=== PATIENT | male | born 1965 | race African-American/Black ===

== ENCOUNTER 2018-07-19 18:19 | Emergency (ER) | payer MEDICARE ==
--- NOTE | 2018-07-19 18:21 | ED ---
HPI Chest Pain - HPI Summary HPI Summary: The pt is a 52 year old male brought in by ambulance to [facility] c/o sudden onset CP since today. The pain rated 9/10 in severity radiates to the jaw and L arm. He notes LUE numbness, SOB, diaphoresis, TOBIN, abd pain and chronic rectal bleeding (secondary to colon CA). He took 5 NTG SHOE CUTTER to no relief. Most of his cardiac work up was done at [facility] at [place]. He reports a MHx of RI x8 and [id number]. He is scheduled for a bypass surgery and colon resection surgery. Allergies: Penicillin, Toradol - History of Current Complaint Hx Obtained From: Patient Onset/Duration: Started Hours Ago, Still Present Timing: Constant Initial Severity: Severe Current Severity: Severe Pain Intensity: 9 Pain Scale Used: 0-10 Numeric Chest Pain Location: Diffuse Chest Pain Radiates: Yes Chest Pain Radiates To:: Arm - L, Jaw - L Alleviating Factor(s): Nothing Associated Signs and Symptoms: Positive: Chest Pain, Headaches, Numbness, Shortness of Breath, Diaphoresis, Abdominal Pain - Allergy/Home Medications Allergies/Adverse Reactions: Allergies Allergy/AdvReac Type Severity Reaction Status Date / Time ketorolac [From Toradol] Allergy Hives Verified 07/20/18 09:19 Penicillins Allergy Swelling Verified 07/20/18 09:19 Of Face,Lips,& Throat tramadol Allergy Hives Verified 07/20/18 09:19 Home Medications: Home Medications Albuterol HFA INHALER* [Ventolin HFA Inhaler*] 1 puff INH Q6H PRN 07/19/18 [ History Confirmed 07/19/18] Clopidogrel TAB* [Plavix TAB*] 75 mg PO DAILY 07/19/18 [History Confirmed ] Diazepam TAB(*) [Valium TAB(*)] 10 mg PO Q8H PRN 07/19/18 [History Confirmed ] Lisinopril TAB* [Prinivil TAB*] 10 mg PO DAILY 07/19/18 [History Confirmed 07/19] Metoprolol Tartrate TAB* [Lopressor TAB*] 50 mg PO BID 07/19/18 [History Confirmed 07/19/18] Morphine Sulfate 15 mg PO Q6HR PRN 07/19/18 [History Confirmed 07/19/18] OLANzapine TAB* [Zyprexa 10 MG TAB*] 10 mg PO DAILY 07/19/18 [History Confirmed 07/19/18] Sertraline* [Zoloft*] 100 mg PO DAILY 07/19/18 [History Confirmed 07/19/18] metFORMIN* [Glucophage 500 MG TAB *] 500 mg PO BID 07/19/18 [History Confirmed 07/19/18] PMH/Surg Hx/FS Hx/Imm Hx Previously Healthy: No Endocrine/Hematology History: Reports: Hx Diabetes Cardiovascular History: Reports: Hx Coronary Artery Disease - Stenting , Hx Hypertension, Hx Myocardial Infarction Respiratory History: Reports: Hx Asthma Psychiatric History: Reports: Hx Schizophrenia, Hx Bipolar Disorder - Cancer History Cancer Type, Location and Year: Colon CA - Family History Known Family History: Positive: Cardiac Disease, Hypertension - Social History Occupation: Employed Full-time Lives: With Family Hx Tobacco Use: No Review of Systems Positive: Chest Pain Negative: Shortness Of Breath, Cough Negative: Abdominal Pain, Vomiting Genitourinary: Negative Musculoskeletal: Negative Skin: Negative All Other Systems Reviewed And Are Negative: Yes Physical Exam - Summary Physical Exam Summary: Appearance: Well-appearing, Well-nourished, lying in bed comfortably Skin: Warm, dry, no obvious rash Eyes: sclera anicteric, no conjunctival pallor ENT: mucous membranes moist, pharynx appears normal Neck: Supple, nontender Respiratory: Clear to auscultation, no signs of respiratory distress Cardiovascular: Normal S1, S2. No murmurs. Normal distal pulses in tibial and radial bilaterally. Abdomen: Soft, nontender, normal active bowel sounds present Musculoskeletal: Normal, Strength/ROM Intact Neurological: A&Ox3, awake and alert, mentation is normal, speech is fluent and appropriate Psychiatric: affect is normal, does not appear anxious or depressed Triage Information Reviewed: Yes Vital Signs On Initial Exam: Initial Vital Signs Resp 18 07/19/18 18:22 Vital Signs Reviewed: Yes Diagnostics - Laboratory Result Diagrams: 07/19/18 18:28 07/19/18 18:28 Lab Statement: Any lab studies that have been ordered have been reviewed, and results considered in the medical decision making process. - Radiology CXR Radiology Interpretation Completed By: ED Physician - Negative: This is a normal CXR - EKG 18:27 Cardiac Rate: Tachycardia - 110 bpm Summary of EKG Findings: Anterior infarct ,old Chest Pain Course/Dx - Course Course Of Treatment: A 52 year-old M presents to the ED with a CC of sudden onset CP since today. He notes LUE numbness, SOB, diaphoresis, TOBIN, abd pain and chronic rectal bleeding (secondary to colon CA). A physical exam and CXR are unremarkable. An EKG reveals tachycardia and an old anterior infarct. In the ED course, pt was given Morphine 10 mg IV which improved the symptoms. Allergies noted. We were able to secure records from [facility] in [place], where the patient said he had been treated before and was told he needed heart surgery and surgery for a colon tumor. 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 There is also a history of mental illness with documentation of schizophrenia and bipolar disease, as well as polysubstance abuse. He had a catheterization during that hospitalization which showed nonobstructive coronary disease. He also had a echocardiogram which showed normal left ventricular function. All in all, I find his history highly questionable. In any event, he has an unchanged EKG compared to February, a normal troponin, and his symptoms are better. I believe he is stable for discharge. - Diagnoses Provider Diagnoses: Non-cardiac chest pain, Drug-seeking behavior, Schizophrenia Discharge - Sign-Out/Discharge Documenting (check all that apply): Patient Departure - Discharge Plan Condition: Good Disposition: HOME Patient Education Materials: Noncardiac Chest Pain (ED) Referrals: [facility] [Outside] - Billing Disposition and Condition Condition: GOOD Disposition: Home - Attestation Statements Document Initiated by Dennisibe: Yes Documenting Scribe: Kathie Greenwood Provider For Whom Vince is Documenting (Include Credential): Dr. Bradley Crockett MD Scribe Attestation: IKathie scribed for Dr. Bradley Crockett MD on 07/21/18 at 2305. Scribe Documentation Reviewed: Yes Provider Attestation: The documentation as recorded by the Kathie gómez accurately reflects the service I personally performed and the decisions made by me, Dr. Bradley Crockett MD
[2018-07-19] MEDS ORDERED: Morphine VIAL* 4 MG/ML VIAL (1 ml vial) IV ONE (18:24)
[2018-07-19 18:46] LABS: Hematocrit 31 % (42-52); Hemoglobin 9.8 g/dl (14.0-18.0); Mean Corpuscular HGB Conc 32 g/dl (31-36); Mean Corpuscular Hemoglobin 24 pg (27-31); Mean Corpuscular Volume 74 fL (80-94); Mean Platelet Volume 8.8 fL (7.4-10.4); Platelet Count 238 10^3/ul (150-450); Red Blood Count 4.19 10^6/ul (4.00-5.40); Red Cell Distribution Width 20 % (10.5-15); White Blood Count 10.1 10^3/ul (3.5-10.8)
[2018-07-19 19:06] LABS: EGFR Non-African American 92.9 (>60)
[2018-07-19 19:15] LABS: ABS Basophils 0.1 10^3/ul (0-0.2); ABS Eosinophils 0.2 10^3/ul (0-0.6); ABS Lymphocytes 1.4 10^3/ul (1.0-4.8); ABS Monocytes 0.9 10^3/ul (0-0.8); ABS Neutrophils 7.4 10^3/ul (1.5-7.7); ABS Nucleated RBC 0 10^3/ul; Eosinophil % 2.2 % (0-6); Lymphocyte % 14.2 % (25-47); Nucleated Red Blood Cells % 0.1
[2018-07-19 21:17] VITALS: BP 148/85
== END 2018-07-19 21:18 | disposition home or self-care (01) ==
LOC: ED 18:19
DX: R07.89 Other chest pain (principal); F20.9 Schizophrenia, unspecified; R06.02 Shortness of breath; Z76.5 Malingerer [conscious simulation]; R00.0 Tachycardia, unspecified; E11.9 Type 2 diabetes mellitus without complications; Z79.84 Long term (current) use of oral hypoglycemic drugs; I25.10 Atherosclerotic heart disease of native coronary artery without angina pectoris; I10 Essential (primary) hypertension; Z95.5 Presence of coronary angioplasty implant and graft; J45.909 Unspecified asthma, uncomplicated; Z82.49 Family history of ischemic heart disease and other diseases of the circulatory system; Z88.5 Allergy status to narcotic agent; Z88.0 Allergy status to penicillin
CPT/HCPCS: 36415; 71045; 80053; 83605; 84484; 85025; 93005; 96374; 99283; J2270

== ENCOUNTER 2018-07-20 08:32 | Observation (INO) | payer MEDICARE ==
[2018-07-20] MEDS ORDERED: MAGNESIUM SULFATE ONE (08:48)
[2018-07-20] MEDS ORDERED: methylPREDNISolone 125 MG* 2 ML VIAL ONE (08:48)
[2018-07-20] MEDS ORDERED: NS 0.9% 1000 ML* 1,000 ML IV ONE (08:49)
[2018-07-20] MEDS ORDERED: methylPREDNISolone 125 MG* 2 ML VIAL IV ONE (08:49)
[2018-07-20] MEDS ORDERED: Albuterol/Ipratropium NEB.SOL* Albuterol 2.5 MG/Ipratropium 0.5 MG 3 ML ONE (08:51)
[2018-07-20] MEDS ORDERED: Morphine VIAL* 4 MG/ML VIAL (1 ml vial) IV ONE (08:52)
[2018-07-20] MEDS ORDERED: Magnesium Sulfate 2 GM IV* 2 GM/50 ML BAG IVPB ONE (08:52)
[2018-07-20] MEDS ORDERED: Nitroglycerin 2% OINT* 1 GM PAK TOPICAL ONE (08:53)
--- NOTE | 2018-07-20 08:54 | ED ---
Shortness of Breath - HPI Summary HPI Summary: This patient is a 52 year old M presenting to [facility] with a chief complaint of SOB and trouble breathing that was worse this morning. The patient rates the pain 10/10 in severity. Patient reports CP. Patient denies n/v. Pt has a hx of COPD, asthma, and 8 MIs. Pt also has recent dx of colon cancer and states he has rectal bleeding currently. He has not had any chemo or resection. He has taken 5 NTG for his CP without relief. He is also taking Plavix and ASA. He has been intubated for asthma in the past and consented to intubation if needed. - History of Current Complaint Chief Complaint: EDChestPainROMI Time Seen by Provider: 07/20/18 08:41 Hx Obtained From: Patient Onset/Duration: Lasting Hours, Still Present Timing: Constant Current Severity: Severe Dyspnea At: Rest Alleviating Factors: Nothing Associated Signs & Symptoms: Negative - n/v - Allergy/Home Medications Allergies/Adverse Reactions: Allergies Allergy/AdvReac Type Severity Reaction Status Date / Time ketorolac [From Toradol] Allergy Hives Verified 07/20/18 09:19 Penicillins Allergy Swelling Verified 07/20/18 09:19 Of Face,Lips,& Throat tramadol Allergy Hives Verified 07/20/18 09:19 Home Medications: Home Medications Aspirin TAB* [Aspirin 325 MG TAB*] 325 mg PO DAILY 07/20/18 [History Confirmed 07/20/18] Atorvastatin* [Lipitor*] 80 mg PO DAILY 07/20/18 [History Confirmed 07/20/18] PMH/Surg Hx/FS Hx/Imm Hx Endocrine/Hematology History: Reports: Hx Diabetes Cardiovascular History: Reports: Hx Coronary Artery Disease - Stenting , Hx Hypertension, Hx Myocardial Infarction Respiratory History: Reports: Hx Asthma Psychiatric History: Reports: Hx Schizophrenia, Hx Bipolar Disorder - Cancer History Cancer Type, Location and Year: Colon CA Infectious Disease History: No Infectious Disease History: Denies: Traveled Outside the [place] in Last 30 Days - Family History Known Family History: Positive: Cardiac Disease, Hypertension - Social History Alcohol Use: None Substance Use Type: Reports: None Hx Tobacco Use: No Smoking Status (MU): Never Smoked Tobacco Review of Systems Positive: Chest Pain Positive: Shortness Of Breath Negative: Vomiting, Nausea All Other Systems Reviewed And Are Negative: Yes Physical Exam - Summary Physical Exam Summary: VITAL SIGNS: Reviewed. GENERAL: Patient is a well-developed and obese male who is lying comfortable in the stretcher. Unable to speak in full sentence he is in respiratory distress HEAD AND FACE: No signs of trauma. No ecchymosis, hematomas or skull depressions. No sinus tenderness. EYES: PERRLA, EOMI x 2, No injected conjunctiva, no nystagmus. EARS: Hearing grossly intact. Ear canals and tympanic membranes are within normal limits. MOUTH: Oropharynx within normal limits. NECK: Supple, trachea is midline, no adenopathy, no JVD, no carotid bruit, no c- spine tenderness, neck with full ROM. CHEST: Symmetric, no tenderness at palpation LUNGS: decreased breath sounds bilaterally. CVS: Regular rate and rhythm, S1 and S2 present, no murmurs or gallops appreciated. ABDOMEN: Soft, non-tender. No signs of distention. No rebound no guarding, and no masses palpated. Bowel sounds are normal. EXTREMITIES: FROM in all major joints, no edema, no cyanosis or clubbing. NEURO: Alert and oriented x 3. No acute neurological deficits. Speech is normal and follows commands. SKIN: Dry and warm Rectal: normal sphincter tone no blood or melena Triage Information Reviewed: Yes Vital Signs On Initial Exam: Initial Vitals Temp Pulse Resp BP Pulse Ox 98 F 103 20 148/114 98 07/20/18 08:33 07/20/18 08:33 07/20/18 08:33 07/20/18 08:33 07/20/18 08:33 Vital Signs Reviewed: Yes Diagnostics - Vital Signs Vital Signs Temp Pulse Resp BP Pulse Ox 07/20/18 08:33 98 F 103 20 148/114 98 - Laboratory Result Diagrams: 07/20/18 13:57 07/20/18 11:51 Lab Statement: Any lab studies that have been ordered have been reviewed, and results considered in the medical decision making process. - EKG 0854 Cardiac Rate: NL EKG Rhythm: Sinus Rhythm - at 99 BPM EKG Comparison: No Significant Change - from 07-19-18 Summary of EKG Findings: no ST elevations Course/Dx - Course Assessment/Plan: This patient is a 52 year old M presenting to [facility] with a chief complaint of SOB and trouble breathing that was worse this morning. The patient rates the pain 10/10 in severity. Patient reports CP. Patient denies n/ v. Pt has a hx of COPD, asthma, and 8 MIs. Pt also has recent dx of colon cancer and states he has rectal bleeding currently. He has not had any chemo or resection. He has taken 5 NTG for his CP without relief. He is also taking Plavix and ASA. He has been intubated for asthma in the past and consented to intubation if needed. Blood work without any significant abnormality except for elevated 9.7 hematocrit 31, glucose 177, CPK is 472 and CRP of 9.1. ABG shows a pH of 7.7 PCO2 46 PO2 182 and O2 sat 99% with 2 L of oxygen. In the ED course the patient was placed on a cardiac specialist, I placed and EJ access and the patient was given fluids, Solu-Medrol, magnesium and morphine for the shortness of breath and chest pain. The patient already took an aspirin however he was placed in a nitroglycerin patch. The patient is feeling a little better however the patient continues to have chest pain. EKG shows a normal sinus rhythm without any ST elevation. Chest x-ray impression: No active cardiopulmonary disease. Patient was given Ativan for anxiety. At this time I discussed my physical exam findings and test results with Dr. River from the hospitalist services who accepted the patient for admission. The patient is more stable feeling better, and he is able to speak in full sentences. - Diagnoses Differential Diagnosis/HQI/PQRI: Positive: Asthma, Bronchitis, CHF, Chest Wall Pain, COPD Exacerbation, MD, Pneumonia, Unstable Angina Provider Diagnoses: Chest pain, Asthma exacerbation - Physician Notifications Discussed Care of Patient With: Princess River Time Discussed With Above Provider: 10:00 Instructed by Provider To: Admit As Inpatient Discharge - Sign-Out/Discharge Documenting (check all that apply): Patient Departure - admitted - Discharge Plan Condition: Fair Disposition: ADMITTED TO [facility] - Billing Disposition and Condition Condition: FAIR Disposition: Admitted to [facility] - Attestation Statements Document Initiated by Scribe: Yes Documenting Scribe: Renzo Sepulveda Provider For Whom Scribe is Documenting (Include Credential): Shawn Stovall MD Scribe Attestation: Renzo Martinez, scribed for Shawn Stovall MD on 07/20/18 at 1822. Scribe Documentation Reviewed: Yes Provider Attestation: The documentation as recorded by the Renzo gómez accurately reflects the service I personally performed and the decisions made by me, Shawn Stovall MD
[2018-07-20] MEDS: Albuterol/Ipratropium NEB.SOL* Albuterol 2.5 MG/Ipratropium 0.5 MG 3 ML INH SCH ×6 (09:00→22:55)
[2018-07-20 09:35] LABS: EGFR Non-African American 96.7 (>60)
[2018-07-20 09:39] LABS: ABS Basophils 0 10^3/ul (0-0.2); ABS Eosinophils 0.3 10^3/ul (0-0.6); ABS Lymphocytes 1.4 10^3/ul (1.0-4.8); ABS Monocytes 0.8 10^3/ul (0-0.8); ABS Neutrophils 4.2 10^3/ul (1.5-7.7); ABS Nucleated RBC 0 10^3/ul; Eosinophil % 4.4 % (0-6); Hematocrit 31 % (42-52); Hemoglobin 9.7 g/dl (14.0-18.0); Lymphocyte % 20.9 % (25-47); Mean Corpuscular HGB Conc 32 g/dl (31-36); Mean Corpuscular Hemoglobin 24 pg (27-31); Mean Corpuscular Volume 75 fL (80-94); Mean Platelet Volume 8.8 fL (7.4-10.4); Nucleated Red Blood Cells % 0.1; Platelet Count 226 10^3/ul (150-450); Red Blood Count 4.15 10^6/ul (4.00-5.40); Red Cell Distribution Width 20 % (10.5-15); White Blood Count 6.7 10^3/ul (3.5-10.8)
[2018-07-20] MEDS ORDERED: LORazepam INJ* 2 MG/ML 1 ML VIAL IV PUSH ONE (09:39)
[2018-07-20] MEDS ORDERED: Morphine VIAL* 4 MG/ML VIAL (1 ml vial) IV PRN (11:36)
[2018-07-20] MEDS ORDERED: Dextrose 50% Syringe 50 ML* 25 GM/50 ML SYRINGE IV PUSH PRN (11:36)
[2018-07-20] MEDS ORDERED: Acetaminophen TAB* 325 MG PO PRN (11:36)
[2018-07-20] MEDS ORDERED: Ondansetron INJ* 2 MG/ML VIAL IV PRN (11:36)
[2018-07-20] MEDS ORDERED: Albuterol HFA INHALER* 8 gm MDI INH PRN (11:44)
[2018-07-20] MEDS ORDERED: Morphine ORAL.SOLN 10 mg* 2 MG/ML UDC 5 ml PO PRN (11:44)
[2018-07-20] MEDS ORDERED: Diazepam TAB(*) 5 MG PO PRN (11:44)
[2018-07-20] MEDS ORDERED: Clopidogrel TAB* 75 MG PO SCH (11:45)
[2018-07-20] MEDS ORDERED: Iodixanol* (CONTRAST) 320 MG/ML 100 ML SDV IV ONE (11:52)
[2018-07-20] MEDS ORDERED: Aspirin TAB* 325 MG PO SCH (12:00)
[2018-07-20] MEDS ORDERED: Albuterol/Ipratropium NEB.SOL* Albuterol 2.5 MG/Ipratropium 0.5 MG 3 ML INH SCH ×2 (12:00→15:00)
[2018-07-20] MEDS: Albuterol 2.5 MG/3 ML NEB.SOL* (0.083%) INH PRN (12:49)
[2018-07-20] MEDS: Metoprolol Tartrate TAB* 50 mg PO SCH ×2 (13:49→20:46)
[2018-07-20] MEDS: Lisinopril TAB* 10 MG PO SCH (13:49)
[2018-07-20] MEDS: Heparin VIAL(*) 5000 UNITS/ML VIAL (FIVE THOUSAND) SUBCUT SCH ×2 (13:49→20:47)
[2018-07-20] MEDS: predniSONE TAB* 20 MG PO SCH (13:49)
[2018-07-20 14:17] LABS: Hematocrit 29 % (42-52); Hemoglobin 9.1 g/dl (14.0-18.0)
[2018-07-20 14:19] LABS: INR 1.06 (0.77-1.02)
--- NOTE | 2018-07-20 16:15 | HP ---
HISTORY AND PHYSICAL: DATE OF ADMISSION: 07/20/18 PRIMARY CARE PROVIDER: None. ATTENDING PHYSICIAN WHILE IN THE HOSPITAL: Dr. Princess River * (report dictated by Buck Burroughs NP). CHIEF COMPLAINT: 1. Shortness of breath. 2. Chest pain. HISTORY OF PRESENT ILLNESS: Mr. Quiñones is a 52-year-old male patient, who has significant cardiac disease, who was in [place] down to [place], the [employer] bus was coming through [place] and yesterday, he started complaining of chest pain on the bus. He alerted the combustion analyst. They merely pulled over and they called 911 and the paramedics picked him and brought him to the ED. Evaluated in our ED yesterday. According to him, he underwent heart enzymes and he spent the night in the waiting room. He described the pain yesterday as a pressure, heaviness, it was unrelenting, it started in the afternoon, just was not getting any better. He took 5 nitro, it did not help, so he decided to come into the ER. It was nonexertional. He did admit to shortness of breath and he felt like he was getting sweaty. He says that he has not taken his medications since Tuesday. He also states that before getting on the [employer] bus, he ate 5 candy apples and his sugars were in the 600 range. He was discharged to the waiting room. When he woke up this morning to try to find his weight down to [place], he went to the administrative receptionist out there, he was complaining of shortness of breath. He was audibly wheezing. He was complaining of chest pain again and they brought him back into the ER, where he was evaluated. He was given nebulizers, steroids, and he improved. He again was complaining of chest pain that did respond to morphine and he was placed on nitro-paste. He says that last time he had a heart catheterization was about a year ago. He says that his last tape coater was Joel Rea from [place], [place]. He denies any recent cough, cold symptoms. No fevers. No calf or leg pain. He denies any nausea or vomiting. He did admit to 1 episode of rectal bleeding yesterday, but none since and his Hemoccult was negative. He does admit to intermittent lower abdominal pain and does admit that he has colon cancer that he was going to have taken care of when he arrived in [place]. Because of his risk factors for CAD and the fact he had chest pain, he was very short of breath, we were asked to evaluate for admission. PAST MEDICAL HISTORY: Significant for: 1. Colon cancer. 2. History of IN he says x8. 3. CAD. 4. History of cardiomyopathy. 5. CHF. 6. Diabetes. 7. Hypertension. 8. Hyperlipidemia. 9. COPD. 10. He has bipolar disorder. 11. Schizophrenia. PAST SURGICAL HISTORY: He has had heart catheterizations and the most recent stent was a year ago and he has had an ICD defibrillator placed. MEDICATIONS: Home meds according to the list he provided include: 1. Lipitor 80 mg daily. 2. Aspirin 325 mg daily. 3. Metformin 500 mg p.o. b.i.d. 4. Zoloft 100 mg p.o. daily. 5. Zyprexa 10 mg daily. 6. Morphine sulfate 15 mg every 6 hours as needed. 7. Metoprolol 50 mg p.o. b.i.d. 8. Lisinopril 10 mg daily. 9. Valium 10 mg p.o. every 8 hours as needed. 10. Plavix 75 mg daily. 11. Ventolin 1 puff inhaled every 6 hours as needed. ALLERGIES TO MEDICATIONS: Include TORADOL, PENICILLIN, and TRAMADOL. FAMILY HISTORY: His mother had a history of IN. He says his father is healthy. Mother did from the IN. SOCIAL HISTORY: He does not smoke. He does not drink. He has 1 child. His surrogate decision maker is his sister, Tessy. REVIEW OF SYSTEMS: There is a documented fever. He denied any significant weight change. There is no double vision. He denied having any ear discharge. He denies having any rhinorrhea. No sore throat. No thyroid enlargement. Again, he did admit to having chest pain and shortness of breath from my HPI. He denies any orthopnea. No nocturnal dyspnea. There was some intermittent lower abdominal discomfort, but no nausea, no vomiting. No dysuria, no frequency. No seizures, no loss of consciousness. No pruritus and no skin ulcerations. Review of 14 systems completed, all others negative. PHYSICAL EXAMINATION GENERAL: At this time, Mr. Quiñones is a 52-year-old male patient. He is sitting in the ED stretcher. He does not appear to be in any acute distress currently, appears to be well nourished and well developed VITAL SIGNS: Blood pressure 128/84 with a pulse of 103, respirations were 20, O2 sat 96%, and temperature 98. HEENT: Head: Atraumatic and normocephalic. Eyes: EOMs are intact. Sclerae anicteric and not pale. Throat: Oral mucosa appears to be moist. No oropharyngeal erythema. NECK: Supple. LUNGS: He did have expiratory wheezing noted on the right middle and right lower lobe. He had equal diaphragmatic expansion. HEART: Sounds S1, S2. He had a regular rate and rhythm. No murmurs, rubs, or gallops. ABDOMEN: Soft, flat. There was tenderness in the left lower quadrant. Bowel sounds were present. EXTREMITIES: Pulses were 2+ throughout. He had no peripheral edema. He is moving all 4 extremities with 5/5 strength. NEUROLOGIC: He is awake. He is alert. He is oriented x3. His tongue is midline. His quick print operator were equal. He had no gross focal deficits. SKIN: Grossly intact. LABORATORY DATA/DIAGNOSTIC STUDIES: Today, WBC of 6.7, RBC of 4.15, hemoglobin of 9.7, hemoglobin yesterday was 9.8, hematocrit 31, platelet count of 226. PTT of 27.6. D-dimer less than 200. Blood gases revealed a pCO2 of 46 and a pO2 of 102. His sodium was 137, potassium is 4.2, chloride 105, bicarb 28, BUN 14, creatinine 0.84, glucose 117. Lactic 1.3. Calcium 9.3, total bili 0.3, AST 37, ALT 49, alk phos 101, CK 472, CK-MB 5.2, myoglobin 29, troponin 0.01. CRP at 9.10, BNP 59, albumin of 4.2. He had a chest x-ray obtained today. Impression: He had a no active cardiopulmonary disease. Again, when I looked at the film myself, I do not see any acute infiltrates or pulmonary edema. He had 3 EKGs, most recent one at 11: 40 today. Does reveal a sinus tachycardia at the rate of 101. No ST elevation. He does appear to have J-point elevation in V1 and V2. When you looked to his EKG that he had at 8:40 this morning that elevation is similar. No acute changes were noted. Old medical records reviewed. ASSESSMENT AND PLAN: Mr. Quiñones is a 52-year-old male patient with multiple medical problems coming into our hospital today with complaints of chest pain and shortness of breath. He will be admitted under observation status: 1. Chest pain. Again, at this point, I do not have much records on the patient. He does have significant risks factors for acute coronary syndrome. He is responding now and saying that the pain is gone. At this point, I am going to go ahead and get 2 more sets of enzymes. We will make him n.p.o. after midnight for possible stress test. I am going to get an echo and I will interrogate his pacemaker as well. He is on Plavix, aspirin, statin, beta- eileen. He has not taken those in 2 days, so I am going to restart those now, particularly the beta- blockers, Plavix, and aspirin, and will continue to follow him. Should his troponins elevate, we will certainly put him on heparin drip and get in touch with Cardiology. I am gong to get his records from his tape coater, Dr. Rea. I have called the office and asked them to fax through our ER here and I have asked the ER staff to be able to look out for those. 2. Colon cancer. Again, at this point, I am going to try to get records about this. I am going to get a CT of the abdomen and pelvis because of the pain he has been having and we will continue to monitor. I suspect that is where his anemia is coming from. We will repeat his H and H later today. 3. Coronary artery disease. Again, aspirin, statin, Plavix, beta-eileen have been ordered. 4. Cardiomyopathy. I am assuming he has cardiomyopathy and he says he also has congestive heart failure. It is probably ischemic in nature. We are going to update his echo. He is on a beta-eileen. He is on JENNIFER inhibitor. We will continue with those. We may need to consider diuretic, but he does not appear to be in congestive landrum failure or fluid overload at this point. So, we will monitor. 5. Diabetes. We will go ahead and put him on a Lispro sliding scale. 6. Hypertension. Continue meds as prescribed. 7. Hyperlipidemia. Continue statin therapy. 8. Chronic obstructive pulmonary disease. He does have a mild exacerbation. I am going to put him on steroids, Dulera, and q.4-hour DuoNebs. 9. History of bipolar schizophrenic disorder. We will continue his p.o. meds as prescribed. Appears to be stable. 10. Social issues. Again, he is on his way down to [place]. I will contact social work to see if they can help arrange this for discharge and I have contacted them early in his course once he is medically stable. 11. Rectal bleeding. Again, at this point, he has had no episodes since he has been here. His Hemoccult is negative. We will monitor and again, we will follow with H and H. 12. DVT prophylaxis. I have placed him on heparin subcu. 13. Code status is full code. 14. Fluid, electrolytes, and nutrition. A consistent carb diet. TIME SPENT: On admission was 60 minutes, greater than half the time was spent face- to-face with the patient obtaining my history and physical; other half time was spent going over the plan of care with the patient and implementing the plan of care. I did discuss the plan of care with my attending, Dr. River, she is in agreement. BUCK BURROUGHS NP [id number]/CPS #: [id number] MTDD
--- NOTE | 2018-07-20 16:17 | ECHO ---
Patient: KAILEY DEL VALLE [facility] Rec#: [id number] : 1965 Date: 07/20/2018 Age: 52y Height: 168 cm / 66.1 in Weight: 111.6 kg / 246.0 lbs Sex: M BSA: 2.19 Room#: [facility] Admit Date#: 07/20/2018 Type: Inpatient Referring: Buck Burroughs NP Reading: Roel Newman DO Street Openings Inspector: Yessy Pickett RDCS Transthoracic Echocardiogram Indication: Chest pain BP: 128/84 HR: 109 Rhythm: Tachycardia Findings History: HTN, HLD, CAD, MD, HM, COPD, colon cancer. Technical Comments: The study quality is good. Completed at 1500. Left Ventricle: The left ventricular chamber size is normal. There is evidence of a hypertrophic cardiomyopathy. Basal septal hypertrophy and systolic anterior motion of the mitral valve are observed creating an outflow tract gradient. with peak end-systolic gradient of 43 mmHg through the LVOT and mid-cavitary end systolic gradient of 64 mmHg Global left ventricular wall motion and contractility are within normal limits. The left ventricle appears hyperdynamic. The estimated ejection fraction is greater than 65%. Abnormal left ventricular diastolic function is observed. Left Atrium: The left atrium is moderately dilated. Right Ventricle: The right ventricular chamber size and systolic function are within normal limits. A pacemaker wire is visualized in the right ventricle. Right Atrium: The right atrium is mild to moderately dilated. A pacemaker wire is visualized in the right atrium. Aortic Valve: The aortic valve is trileaflet. The aortic valve leaflets are mildly thickened. There is no evidence of aortic stenosis. Mitral Valve: The mitral valve leaflets are mildly thickened. There is no evidence of mitral stenosis. Tricuspid Valve: The tricuspid valve leaflets are normal. There is trace tricuspid regurgitation. There is no tricuspid stenosis. Pulmonic Valve: The pulmonic valve appears normal. There is a trace pulmonic regurgitation. There is no pulmonic stenosis. Pericardium: There is no significant pericardial effusion. A pericardial fat pad is visualized. Aorta: There is no dilatation of the ascending aorta. There is no dilatation of the aortic arch. The aortic root is normal in size. Pulmonary Artery: The main pulmonary artery appears normal. Venous: The inferior vena cava is dilated. There is a greater than 50% respiratory change in the inferior vena cava dimension. Conclusions The left ventricular chamber size is normal. There is evidence of a hypertrophic cardiomyopathy, appears genetic based Basal septal hypertrophy up to 1.9 cm and systolic anterior motion of the mitral valve are observed creating an outflow tract gradient with peak end-systolic gradient of 43 mmHg through the LVOT and mid-cavitary end systolic gradient of 64 mmHg The left ventricle appears hyperdynamic. The estimated ejection fraction is greater than 70%. The left atrium is moderately dilated. The right ventricular chamber size and systolic function are within normal limits. Nyquist parameters inadvertently left incorrect throughout study making it difficult to evaluate valvular regurgitation. There did not appear to be any severe regurgitant valve disease. Compared to prior study from 12/2017, no clinically significant changes are noted Measurements Name Value Normal Range RVIDd (AP) 2D 2.9 cm (0.9 - 2.6) RVDdMajor (2D) 3.3 cm (2.2 - 4.4) RAd ISD 4CH 5.4 cm (3.4 - 4.9) RA (A4C)W 4.5 cm (2.9 - 4.6) IVSd (2D) 1.9 cm (0.6 - 1) LVPWd (2D) 1.2 cm (0.6 - 1) LVIDd (2D) 4.1 cm (3.6 - 5.4) LVIDs (2D) 2 cm - LV FS (2D) 50.9 % (25 - 45) Aortic Annulus 2 cm (1.4 - 2.6) Ao root diameter (2D) 3.1 cm (2.1 - 3.5) Ascending Ao 3 cm (2.1 - 3.4) Aortic arch 2.2 cm (1.8 - 3.4) LA dimension (AP) 2D 3.5 cm (2.3 - 3.8) LAd ISD 4CH 6.1 cm (2.9 - 5.3) LA ISD 4CH W 5.8 cm (2.5 - 4.5) Name Value Normal Range LA ESV BP (A/L) index 42 ml/m2 - Name Value Normal Range MV E-wave Vmax 1.1 m/sec - MV deceleration time 246 msec - MV A-wave Vmax 1.8 m/sec - MV E:A ratio 0.6 ratio - LV septal e' Vmax 0.04 m/sec - LV lateral e' Vmax 0.06 m/sec - LV E:e' septal ratio 27.51 ratio - LV E:e' lateral ratio 18.33 ratio - Name Value Normal Range AV Vmax 3.5 m/sec - AV VTI 55 cm - AV peak gradient 49 mmHg - AV mean gradient 24 mmHg - LVOT diameter 2 cm - LVOT Vmax 2 m/sec - LVOT VTI 32.7 cm - LVOT peak gradient 16 mmHg - LVOT mean gradient 9 mmHg - ERIKA Vmax 1.4 m/sec - Name Value Normal Range MV Vmax 1.8 m/sec - MV VTI 39.1 cm - MV peak gradient 14 mmHg - MV mean gradient 7 mmHg - Name Value Normal Range IVC diameter 2.7 cm - Name Value Normal Range PV Vmax 1.8 m/sec - PV peak gradient 2.1 mmHg -
[2018-07-20] MEDS: Insulin LISPRO* 1 UNITS UNIT SUBCUT SCH (17:02)
[2018-07-20] MEDS: Mometasone/Formoter 200/5 MDI INH SCH (20:23)
[2018-07-21] MEDS: Albuterol/Ipratropium NEB.SOL* Albuterol 2.5 MG/Ipratropium 0.5 MG 3 ML INH SCH ×2 (03:15→07:34)
[2018-07-21] MEDS: Heparin VIAL(*) 5000 UNITS/ML VIAL (FIVE THOUSAND) SUBCUT SCH ×3 (05:29→20:33)
[2018-07-21 05:36] LABS: Hematocrit 27 % (42-52); Hemoglobin 8.2 g/dl (14.0-18.0); Mean Corpuscular HGB Conc 31 g/dl (31-36); Mean Corpuscular Hemoglobin 23 pg (27-31); Mean Corpuscular Volume 74 fL (80-94); Mean Platelet Volume 8.7 fL (7.4-10.4); Platelet Count 208 10^3/ul (150-450); Red Blood Count 3.59 10^6/ul (4.00-5.40); Red Cell Distribution Width 20 % (10.5-15); White Blood Count 11.9 10^3/ul (3.5-10.8)
[2018-07-21 05:52] LABS: EGFR Non-African American 102.3 (>60)
[2018-07-21 05:57] LABS: INR 1.07 (0.77-1.02)
[2018-07-21 06:13] LABS: ABS Basophils 0 10^3/ul (0-0.2); ABS Eosinophils 0 10^3/ul (0-0.6); ABS Lymphocytes 0.8 10^3/ul (1.0-4.8); ABS Monocytes 0.9 10^3/ul (0-0.8); ABS Neutrophils 10.1 10^3/ul (1.5-7.7); ABS Nucleated RBC 0.01 10^3/ul; Lymphocyte % 7.1 % (25-47)
[2018-07-21 06:14] LABS: Eosinophil % 0.1 % (0-6); Nucleated Red Blood Cells % 0
[2018-07-21] MEDS: Mometasone/Formoter 200/5 MDI INH SCH ×2 (07:34→19:58)
[2018-07-21] MEDS ORDERED: Nitroglycerin 2% OINT* 1 GM PAK TOPICAL ONE (08:43)
[2018-07-21] MEDS ORDERED: Morphine VIAL* 4 MG/ML VIAL (1 ml vial) IV ONE (08:45)
[2018-07-21] MEDS: Insulin LISPRO* 1 UNITS UNIT SUBCUT SCH ×3 (08:58→17:22)
[2018-07-21] MEDS ORDERED: Atorvastatin* 80 MG TAB PO SCH (09:00)
[2018-07-21] MEDS: Aspirin TAB* 325 MG PO SCH (09:12)
[2018-07-21] MEDS: predniSONE TAB* 20 MG PO SCH (09:12)
[2018-07-21] MEDS: OLANzapine TAB* 10 MG PO SCH (09:12)
[2018-07-21] MEDS: Metoprolol Tartrate TAB* 50 mg PO SCH ×2 (09:12→20:46)
[2018-07-21] MEDS: Sertraline* 100 MG TAB PO SCH (09:13)
[2018-07-21] MEDS: Clopidogrel TAB* 75 MG PO SCH (09:13)
[2018-07-21] MEDS: Lisinopril TAB* 10 MG PO SCH (09:13)
--- NOTE | 2018-07-21 10:05 | PN ---
Subjective Date of Service: 07/21/18 Interval History: Patient reports chest pain at his baseline 1-3 times a day in which he reports he takes hydrocodone 1-3 tabs a day which resolves it- he stated this is prescribed to him as a regular prescription but then stated he has no PCP. He is not able to tell me who prescribes his medications. His istop was ran which shows two prescriptions fro hydrocodone for 2-3 day courses in June and in Jul. He now admits this is not a regular prescription and that he "used to be prescribed this a long time ago" - he admits the same about the valium. He states he has been out of his medications for months but has been taking his cardiac and "other medications" medications because he had "extra". He is not able to tell me what pharmacy he uses. Today he reports he had CP that resolved in a "few minutes" after he was given morphine. He reports he has CP daily for "many years". He denies any radiation or SOB at that time. He denies cough, sputum production. He reports he has been wheezing the last few days but states today this is better. He denies abdominal pain. He reports soft stools with noted blood x3 days. Denies melena. Per nursing staff he has flushed all "bloody bowel movements". He reports a hx of colon ca but is not able to tell me where he was dx and states he has not had follow up [facility] found out from the pacer rep that the patient was just at [facility] 2-3 days ago c/o CP and had his pacer evaluated. Awaiting records from [facility]. Objective Active Medications: Acetaminophen (Tylenol Tab*) 650 mg PO Q4H PRN PRN Reason: FEVER/PAIN Albuterol (Ventolin 2.5 Mg/3 Ml Neb.Sumi*) 2.5 mg INH Q2H PRN PRN Reason: SOB/WHEEZING Last Admin: 07/20/18 12:49 Dose: 2.5 mg Albuterol (Ventolin Hfa Inhaler*) 1 puff INH Q6H PRN PRN Reason: SHORTNESS OF BREATH Aspirin (Aspirin Tab*) 325 mg PO DAILY [facility] Last Admin: 07/21/18 09:12 Dose: 325 mg Atorvastatin Calcium (Lipitor*) 80 mg PO DAILY [facility] Last Admin: 07/21/18 09:12 Dose: 80 mg Clopidogrel Bisulfate (Plavix Tab*) 75 mg PO DAILY [facility] Last Admin: 07/21/18 09:13 Dose: 75 mg Dextrose (D50w Syringe 50 Ml*) 12.5 gm IV PUSH .FOR FS < 60 - SS PRN PRN Reason: FS < 60 Diazepam (Valium Tab(*)) 10 mg PO Q8H PRN PRN Reason: ANXIETY Last Admin: 07/20/18 20:57 Dose: 10 mg Heparin Sodium (Porcine) (Heparin Vial(*)) 5,000 units SUBCUT Q8HR [facility] Last Admin: 07/21/18 05:29 Dose: 5,000 units Insulin Human Lispro (Humalog*) 0 units SUBCUT AC [facility]; Protocol Last Admin: 07/21/18 08:58 Dose: Not Given Lisinopril (Prinivil Tab*) 10 mg PO DAILY [facility] Last Admin: 07/21/18 09:13 Dose: 10 mg Metoprolol Tartrate (Lopressor Tab*) 50 mg PO BID [facility] Last Admin: 07/21/18 09:12 Dose: 50 mg Mometasone Furoate/Formoterol Fumar (Dulera 200/5 Mdi*) 2 puff INH BID [facility] Last Admin: 07/21/18 07:34 Dose: 2 puff Olanzapine (Zyprexa Tab*) 10 mg PO DAILY [facility] Last Admin: 07/21/18 09:12 Dose: 10 mg Ondansetron HCl (Zofran Inj*) 4 mg IV Q6H PRN PRN Reason: NAUSEA Pharmacy Profile Note (Nitro Patch/Oint Remove*) 1 note PATCH OFF ONCE ONE Stop: 07/21/18 15:01 Prednisone (Deltasone Tab*) 60 mg PO DAILY [facility] Last Admin: 07/21/18 09:12 Dose: 60 mg Sertraline HCl (Zoloft*) 100 mg PO DAILY [facility] Last Admin: 07/21/18 09:13 Dose: 100 mg Vital Signs - 8 hr 07/21/18 07/21/18 07/21/18 03:17 03:31 07:39 Temperature 97.8 F Pulse Rate 86 63 65 Respiratory 16 18 14 Rate Blood Pressure 112/52 (mmHg) O2 Sat by Pulse 97 97 95 Oximetry 07/21/18 07/21/18 07:56 09:08 Temperature 97.4 F Pulse Rate 61 Respiratory 20 18 Rate Blood Pressure 131/66 (mmHg) O2 Sat by Pulse 100 Oximetry Oxygen Devices in Use Now: None Appearance: obese 52 yo A+Ox3 in NAD Eyes: No Scleral Icterus, PERRLA Ears/Nose/Mouth/Throat: NL Teeth, Lips, Gums, Mucous Membranes Moist Neck: NL Appearance and Movements; NL JVP Respiratory: Symmetrical Chest Expansion and Respiratory Effort, Clear to Auscultation Cardiovascular: NL Sounds; No Murmurs; No JVD, RRR, No Edema Abdominal: NL Sounds; No Tenderness; No Distention, - - obese Extremities: No Edema, No Clubbing, Cyanosis Skin: No Rash or Ulcers, No Nodules or Sclerosis Neurological: Alert and Oriented x 3, NL Sensation, NL Gait, NL Muscle Strength and Tone Lines/Tubes/Other Access: Clean, Dry and Intact Peripheral IV Nutrition: Taking PO's - currently NPO for stress test Result Diagrams: 07/21/18 13:48 07/21/18 05:24 Microbiology and Other Data: Microbiology 07/20/18 08:00 Stool Occult Blood (ARABELLA) - Final Stool Assess/Plan/Problems-Billing Assessment: 52 yo male with a complex PMH of CAD s/p drug eluding stent, htn, hlds, DM2, vtach s/p ICD, polysubstance abuse, obesity, diverticulosis, multiple ER visits in [place] for chest pain who presented to the ER on 07/19 for chest pain. - Patient Problems (1) Chest pain Comment: - admitted for CP DARIEN - Troponins flat - No EKG changes noted compared to prior EKG sent from [facility] - Stress test today pending - continue ASA, plavix, BB, statin (2) Anemia Comment: - unclear etilogy. Pt does have [employer] cell train. Per patient he has rectal bleeding but stool for occult blood is negative and per nursing staff have not witnessed this. Repeat HH this afternoon and continue to trend. - Pt reports dx of colon ca 8 months ago that he is to f/u with colorectal surgeon - trying to obatin records. - CT abdomen shows diverticulosis - no noted colon ca. (3) Chronic pain Comment: Chronic CP per patient. Patient istop was run in which he only has what is stated below. He does not have a prescription for morphine or valium. This was discussed with the patient after he told me he was prescribed hydrocodone regularly for chronic pain and valium for anxiety. He now admits this is not true and this was "a long time ago". He has no PCP. Pt with documented hx of drug seeking behavior ISTOP REPORT Patient Name: Jhon Quiñones Date: 1965 Address: [address] [place] [address] Sex: Male 07/15/2018 07/15/2018 hydrocodone-acetaminophen 5-325 mg tablet 8 tabs 2 day Chencho Batista MD 06/22/2018 06/23/2018 hydrocodone-acetaminophen 5-325 mg tablet 9 tabs 3 daySNiki nguyen RPA-C (4) Diabetes Comment: - HbgA1C 8.4 - hold metformin - continue lispro SS (5) HTN (hypertension) Comment: - controlled - Lisinopril - metoprolol (6) HLD (hyperlipidemia) Comment: - continue atrovastatin (7) Schizophrenia Comment: - unclear what medications he should be on - we have a medication list stating - zyprexa, zoloft and seroquel as well as Valium - per pt he is not currently taking valium but is asking for it. DC valium and continue other above medications. - patient does not appear to be paranoid but has underlying personality disorder and is a poor historian and has been found to not be truthful with information appearing to be manipulative with possible drug seeking behavior (8) Sickle cell trait Comment: - could explain anemia - heme occult negative - continue to monitor HH (9) Narcotic dependence Comment: per ER note from [facility] who states they know him him well - he has hx of drug seeking behavior and hx of narcitic dependence. (10) Full code status (11) DVT prophylaxis Status and Disposition: OBV for CP DARIEN. Potential DC home tomorrow if stable.
[2018-07-21] MEDS ORDERED: Insulin GLARGINE(*) 1 UNITS UNIT SUBCUT ONE (11:57)
[2018-07-21] MEDS ORDERED: Regadenoson* 0.4 MG/5 ML SYRINGE ONE (12:33)
[2018-07-21] MEDS: Albuterol 2.5 MG/3 ML NEB.SOL* (0.083%) INH PRN (14:11)
[2018-07-21 14:16] LABS: Hematocrit 29 % (42-52)
[2018-07-21] MEDS ORDERED: Nitro Patch/OINT Remove PATCH OFF ONE (15:00)
[2018-07-21 18:29] LABS: Urine Appearance Clear; Urine Blood Negative (Negative); Urine Color Yellow; Urine Ketones Negative (Negative); Urine Protein Negative (Negative); Urine Specific Gravity 1.013 (1.010-1.030); Urine Urobilinogen Positive (Negative)
[2018-07-22] MEDS: Albuterol 2.5 MG/3 ML NEB.SOL* (0.083%) INH PRN ×4 (03:25→15:29)
[2018-07-22] MEDS: Heparin VIAL(*) 5000 UNITS/ML VIAL (FIVE THOUSAND) SUBCUT SCH ×2 (05:00→13:41)
[2018-07-22 05:54] LABS: ABS Basophils 0 10^3/ul (0-0.2); ABS Eosinophils 0 10^3/ul (0-0.6); ABS Lymphocytes 1.6 10^3/ul (1.0-4.8); ABS Monocytes 0.7 10^3/ul (0-0.8); ABS Neutrophils 7.4 10^3/ul (1.5-7.7); ABS Nucleated RBC 0 10^3/ul; Eosinophil % 0.4 % (0-6); Hematocrit 27 % (42-52); Hemoglobin 8.4 g/dl (14.0-18.0); Lymphocyte % 16.7 % (25-47); Mean Corpuscular HGB Conc 32 g/dl (31-36); Mean Corpuscular Hemoglobin 23 pg (27-31); Mean Corpuscular Volume 74 fL (80-94); Mean Platelet Volume 8.6 fL (7.4-10.4); Nucleated Red Blood Cells % 0.1; Platelet Count 208 10^3/ul (150-450); Red Blood Count 3.59 10^6/ul (4.00-5.40); Red Cell Distribution Width 20 % (10.5-15); White Blood Count 9.8 10^3/ul (3.5-10.8)
[2018-07-22 06:02] LABS: EGFR Non-African American 89.3 (>60)
[2018-07-22] MEDS: Mometasone/Formoter 200/5 MDI INH SCH (08:09)
[2018-07-22] MEDS ORDERED: Atorvastatin* 80 MG TAB PO SCH (09:00)
[2018-07-22] MEDS: Insulin LISPRO* 1 UNITS UNIT SUBCUT SCH ×2 (09:22→12:19)
[2018-07-22] MEDS: Aspirin TAB* 325 MG PO SCH (09:22)
[2018-07-22] MEDS: OLANzapine TAB* 10 MG PO SCH (09:23)
[2018-07-22] MEDS: Metoprolol Tartrate TAB* 50 mg PO SCH (09:23)
[2018-07-22] MEDS: Sertraline* 100 MG TAB PO SCH (09:23)
[2018-07-22] MEDS: Lisinopril TAB* 10 MG PO SCH (09:23)
[2018-07-22] MEDS: Clopidogrel TAB* 75 MG PO SCH (09:23)
[2018-07-22 13:56] VITALS: BP 117/61
--- NOTE | 2018-07-22 14:28 | DCNOTE ---
Subjective Date of Service: 07/22/18 Interval History: pt denies further chest pain on evaluation today. He states he "feels a little wheezy" occasionally but denies SOB. Denies cough or sputum production. Reports good appetite. No abdominal pain. Denies n/V/D. He currently denies any pain. Reviewed discharge plan with patient he states understanding. Pt reports hx of colon cancer - he was strongly recommended to follow up with his previous referral to a colon rectal surgeon. Pt agrees with DC today Objective Active Medications: Acetaminophen (Tylenol Tab*) 650 mg PO Q4H PRN PRN Reason: FEVER/PAIN Last Admin: 07/21/18 17:21 Dose: 650 mg Albuterol (Ventolin 2.5 Mg/3 Ml Neb.Sumi*) 2.5 mg INH Q2H PRN PRN Reason: SOB/WHEEZING Last Admin: 07/22/18 12:06 Dose: 2.5 mg Albuterol (Ventolin Hfa Inhaler*) 1 puff INH Q6H PRN PRN Reason: SHORTNESS OF BREATH Aspirin (Aspirin Tab*) 325 mg PO DAILY [facility] Last Admin: 07/22/18 09:22 Dose: 325 mg Atorvastatin Calcium (Lipitor*) 40 mg PO DAILY [facility] Last Admin: 07/22/18 09:22 Dose: 40 mg Clopidogrel Bisulfate (Plavix Tab*) 75 mg PO DAILY [facility] Last Admin: 07/22/18 09:23 Dose: 75 mg Dextrose (D50w Syringe 50 Ml*) 12.5 gm IV PUSH .FOR FS < 60 - SS PRN PRN Reason: FS < 60 Heparin Sodium (Porcine) (Heparin Vial(*)) 5,000 units SUBCUT Q8HR [facility] Last Admin: 07/22/18 13:41 Dose: 5,000 units Insulin Human Lispro (Humalog*) 0 units SUBCUT AC [facility]; Protocol Last Admin: 07/22/18 12:19 Dose: 6 units Lisinopril (Prinivil Tab*) 10 mg PO DAILY [facility] Last Admin: 07/22/18 09:23 Dose: 10 mg Metoprolol Tartrate (Lopressor Tab*) 50 mg PO BID [facility] Last Admin: 07/22/18 09:23 Dose: 50 mg Mometasone Furoate/Formoterol Fumar (Dulera 200/5 Mdi*) 2 puff INH BID [facility] Last Admin: 07/22/18 08:09 Dose: 2 puff Olanzapine (Zyprexa Tab*) 10 mg PO DAILY [facility] Last Admin: 07/22/18 09:23 Dose: 10 mg Ondansetron HCl (Zofran Inj*) 4 mg IV Q6H PRN PRN Reason: NAUSEA Sertraline HCl (Zoloft*) 100 mg PO DAILY [facility] Last Admin: 07/22/18 09:23 Dose: 100 mg Vital Signs - 8 hr 07/22/18 07/22/18 07/22/18 07:25 08:09 11:46 Temperature 98.0 F 98.3 F Pulse Rate 65 84 58 Respiratory 20 22 20 Rate Blood Pressure 147/74 117/61 (mmHg) O2 Sat by Pulse 97 97 99 Oximetry 07/22/18 12:08 Temperature Pulse Rate 77 Respiratory 18 Rate Blood Pressure (mmHg) O2 Sat by Pulse 98 Oximetry Oxygen Devices in Use Now: None Appearance: obese 52 yo A+O x3 in NAD Eyes: No Scleral Icterus, PERRLA Ears/Nose/Mouth/Throat: NL Teeth, Lips, Gums, Mucous Membranes Moist Respiratory: Symmetrical Chest Expansion and Respiratory Effort, Clear to Auscultation Cardiovascular: NL Sounds; No Murmurs; No JVD, RRR, No Edema Abdominal: NL Sounds; No Tenderness; No Distention, No Hepatosplenomegaly - obese Extremities: No Edema, No Clubbing, Cyanosis Skin: No Rash or Ulcers, No Nodules or Sclerosis Neurological: Alert and Oriented x 3, NL Sensation, NL Gait, NL Muscle Strength and Tone Lines/Tubes/Other Access: Clean, Dry and Intact Peripheral IV Nutrition: Taking PO's Result Diagrams: 07/22/18 05:13 07/22/18 05:13 Microbiology and Other Data: Microbiology 07/20/18 08:00 Stool Occult Blood (ARABELLA) - Final Stool Assess/Plan/Problems-Billing Assessment: 52 yo male with a complex PMH of CAD s/p drug eluding stent, htn, hlds, DM2, vtach s/p ICD, polysubstance abuse, obesity, diverticulosis, multiple ER visits in [place] for chest pain who presented to the ER on 07/19 for chest pain. - Patient Problems (1) Chest pain Comment: - admitted for CP DARIEN - Troponins flat - No EKG changes noted compared to prior EKG sent from [facility] - Nuclear med Stress test reporting apcial ischemia placing him at intermediate risk - discussed this with Dr. Trujillo who reviewed the nuclear med images reporting he does not small area of apical ischemia reversible but he would classify this as low risk and recommendation is to continue medical management - ok for DC and f/u with his engine pilot. - continue ASA, plavix, BB, statin (2) Anemia Comment: - unclear etilogy. Pt does have [employer] cell trait. Per patient he has rectal bleeding but stool for occult blood is negative and per nursing staff have not witnessed this. Repeat HH are stable. No evidence for rectal bleeding - Pt reports dx of colon ca 8 months ago that he is to f/u with colorectal surgeon - pt does not know who diagnosed this - he was strongly recommended to follow up with the colorectal suregon he was referred to. - CT abdomen shows diverticulosis - no noted colon ca. (3) Chronic pain Comment: Chronic CP per patient. Patient istop was run in which he only has what is stated below. He does not have a prescription for morphine or valium. This was discussed with the patient after he told me he was prescribed hydrocodone regularly for chronic pain and valium for anxiety. He now admits this is not true and this was "a long time ago". He has no PCP. Pt with documented hx of drug seeking behavior ISTOP REPORT Patient Name: Jhon Quiñones Date: 1965 Address: [address] [place] [address] Sex: Male 07/15/2018 07/15/2018 hydrocodone-acetaminophen 5-325 mg tablet 8 tabs 2 day Chencho Batista MD 06/22/2018 06/23/2018 hydrocodone-acetaminophen 5-325 mg tablet 9 tabs 3 daySNiki nguyen RPA-Samuel pt is not being DC home with any narcotics or benzos (4) Diabetes Comment: - HbgA1C 8.4 - hold metformin - continue lispro SS (5) HTN (hypertension) Comment: - controlled - Lisinopril - metoprolol (6) HLD (hyperlipidemia) Comment: - continue atrovastatin (7) Schizophrenia Comment: - unclear what medications he should be on - we have a medication list stating - zyprexa, zoloft and seroquel - patient does not appear to be paranoid but has underlying personality disorder and is a poor historian and has been found to not be truthful with information appearing to be manipulative with possible drug seeking behavior (8) Sickle cell trait Comment: - could explain anemia - heme occult negative - continue to monitor HH (9) Narcotic dependence Comment: per ER note from [facility] who states they know him him well - he has hx of drug seeking behavior and hx of narcotic dependence. (10) Full code status (11) DVT prophylaxis Status and Disposition: OBV for CP DARIEN. DC home today. Patient is taking a bus to his aunts house in [place], [place]. Case management and social work following.
[2018-07-23] MEDS ORDERED: Atorvastatin* 40 MG TAB PO SCH (09:00)
--- NOTE | 2018-07-23 12:19 | DS ---
AMENDED REPORT NOW INCLUDES DESIGNATED COSIGNER DISCHARGE SUMMARY: DATE OF ADMISSION: 07/20/18 DATE OF DISCHARGE: 07/22/18 PROVIDER: Marcela Castillo NP ATTENDING PHYSICIAN: Dr. Trevizo * (report dictated by Marcela Castillo NP). PRIMARY CARE PROVIDER: No PCP. The patient is from [place], [place]. DISCHARGE DIAGNOSES: 1. Chest pain, unclear etiology, atypical, ruled out for acute coronary syndrome. 2. Anemia with a severe sickle cell trait. 3. History of polysubstance abuse with drug-seeking behavior. SECONDARY DIAGNOSES: 1. Coronary artery disease, status post drug-eluting stent. 2. Hypertension. 3. Hyperlipidemia. 4. Type 2 diabetes. 5. History of ventricular tachycardia, status post ICD. 6. Obesity. 7. Diverticulosis. 8. Possible history of colon cancer, diagnosed 8 months ago. Per the patient, he does not remember where this was diagnosed and has failed to follow up. HISTORY OF PRESENT ILLNESS AND HOSPITAL COURSE: Please see history and physical by Buck Burroughs NP, for full admission details; but in summary, this is a 52-year- old male who reported on admission he was in [place], traveling down to [place] on the [employer] bus coming through [place] the day prior to admission when he started to complain of chest pain on the bus and alerted the sales agent business services in which he pulled over and called 911 and the paramedics picked him up and brought him to [facility] Emergency Department. The day prior to admission, the patient was evaluated in the emergency department where his troponins were trended and had no EKG changes and he was discharged from the emergency department. The patient reports he spent the night in the emergency waiting room and the next day he complained of shortness of breath and trouble breathing, also rating chest pain 10/10 and he was readmitted to the emergency department for further workup. The patient reported a history of 8 to 10 MIs, a history of colon cancer and reported rectal bleeding. He was admitted to the hospitalist service for chest pain, rule out acute coronary syndrome. The patient was admitted to the hospitalist service on telemetry where his troponins were trended, which were all flat, as well as his EKGs, which showed no change in comparison to prior EKGs (records were received from [place], [place]). The patient underwent a transthoracic echocardiogram, which showed no significant valvular disease with evidence of hypertrophic cardiomyopathy, left ventricle appears hyperdynamic with EF greater than 70%, right atrium is moderately dilated, right ventricular chamber size and systolic function within normal limits. The patient also underwent a cardiac nuclear stress test, which the impression does state "partially reversible [id number] perfusion defect of the distal anterior wall towards the apex suggested an area of ischemia" placing the patient at intermediate risk. This report was discussed with fisher, Dr. Trujillo, who reviewed the images himself, who stated there is a small area of ischemia at the apex, which is reversible; however, he would classify this as a low risk. Recommendation was for medical management only. The patient is also noted to have anemia. In his prior report, it is reported that he has a sickle cell trait. The patient reports rectal bleeding; however, his stool for occult blood was negative. The patient has a history of schizophrenia and bipolar disorder. He consistently reported different stories to different providers and staff. In his records, which were received from [place], [place], it is reported that he is well known to their emergency department having multiple visits a month. The patient has noted personality disorder as well as polysubstance abuse disorder with drug-seeking behavior documented in the past. He exhibited some of this behavior throughout his hospitalization where he initially told the admitting provider he was prescribed morphine and Valium, and his I-STOP was run , neither of these medications were on his I-STOP. This was discussed with the patient and he did admit that these were "very old prescriptions" and currently is not prescribed any opioid medications. It does appear he had 2 short 2 to 3 day prescriptions, which were given to him by other providers in the last couple months, but these were the only narcotics listed on his I-STOP. It was also found out that 2 to 3 days prior to his hospitalization here at [facility], he was actually in [place] at [facility] and this was found out through the pacemaker rep, who interrogated the patient's pacemaker as he remembered the patient at [facility] where the patient reported that his ICD fired multiple times, being evaluated at the emergency department, in which his pacemaker was interrogated and the ICD had not been noted to fire. This really goes against the patient's initial story of traveling on a bus from [place] to [place]. Social Work and Case Management have been involved in the patient's case throughout hospitalization. The patient is going to be discharged to the [employer] Bus in which his ticket has been paid for to go to his aunt's house in [place], [place]. The patient has been provided with 5 days of his medications. It was strongly recommended to the patient that he needs to establish with a primary care provider as well as follow up with his fisher as well as follow up with Gastroenterology and a colorectal surgeon if it is true he has a found colon mass. He did undergo an abdomen CT with contrast on admission, which did not show a colon mass. Again, the patient does not remember where he had this initial imaging or who told him this , but he does state he knows he needs to follow up with a GI specialist and/or a colorectal surgeon. It does not appear the patient is having any bloody bowel movements as he reports, he is anemic; however, his hemoglobin has remained stable and his stool Hemoccult is negative. Per the nursing staff, they have not noted any blood in his stools. The patient agrees with discharge at this time. The patient appears to be appropriate. He understands the discharge plan. He states that he feels safe. He denies suicidal ideation or depression. He reports that he has a good support system with his aunt and who he will be staying with. DISCHARGE MEDICATIONS: 1. Atorvastatin 80 mg p.o. daily. 2. Aspirin 325 mg p.o. daily. 3. Metformin 500 mg p.o. b.i.d. 4. Zoloft 100 mg p.o. daily. 5. Zyprexa 10 mg p.o. daily. 6. Lopressor 50 mg p.o. b.i.d. 7. Lisinopril 10 mg p.o. daily. 8. Plavix 75 mg p.o. daily. 9. Albuterol HFA inhaler 1 puff INH q.6 hours p.r.n. 10. Dulera 200/5 two puffs INH b.i.d. DISCHARGE PLAN: 1. The patient will be discharged to the bus station in which he has been given a ticket to [place], [place] to stay with his aunt. 2. He was instructed to follow up with primary care provider within the next week. As well, he needs to follow up with the fisher as well as a seniour insight manager and/or a colorectal surgeon; however, it is unclear if this story of colon cancer is actually accurate. The patient states he understands he needs further workup. 3. The patient was instructed to get CBC and a BMP in 1 week. 4. He was instructed if he has any worsening or concerning symptoms, just return to the emergency department. TIME SPENT: Approximately 60 minutes was spent on this discharge. MARCELA CASTILLO, NONI [id number]/[facility] #: [id number] STEPHANIE
== END 2018-07-22 16:26 | disposition home or self-care (01) ==
LOC: ED 08:32 → MEDTELE 13:19
PROVIDERS: ADMIT Internal Medicine; ATTEND Internal Medicine
DX: R07.9 Chest pain, unspecified (principal); D64.9 Anemia, unspecified; F19.10 Other psychoactive substance abuse, uncomplicated; I25.10 Atherosclerotic heart disease of native coronary artery without angina pectoris; I10 Essential (primary) hypertension; E78.5 Hyperlipidemia, unspecified; E11.9 Type 2 diabetes mellitus without complications; E66.9 Obesity, unspecified; K57.90 Diverticulosis of intestine, part unspecified, without perforation or abscess without bleeding; Z85.038 Personal history of other malignant neoplasm of large intestine; Z79.82 Long term (current) use of aspirin; G89.29 Other chronic pain; D57.1 Sickle-cell disease without crisis; Z88.0 Allergy status to penicillin; Z95.5 Presence of coronary angioplasty implant and graft
CPT/HCPCS: 36415; 71045; 74177; 78452; 80048; 80053; 80061; 80307; 81003; 82270; 82550; 82553; 82565; 82803; 83036; 83605; 83735; 83874; 83880; 84484; 85014; 85018; 85025; 85379; 85610; 85730; 86140; 93005; 93017; 93306; 94640; 96365; 96375; 96376; 99285; A9270-GY; A9502; G0378; J1644; J2060; J2270; J2785; J2930; J3475; J7512; Q9967